=== PATIENT | female | born 1960 | race Two or more races ===

== ENCOUNTER → 2019-01-04 | Outpatient (CLI) | payer MEDICAID ==
--- NOTE | 2019-01-05 09:04 | XR ---
EXAMINATION TYPE: XR foot complete LT DATE OF EXAM: 01/04/2019 CLINICAL HISTORY: Left foot pain and swelling after rolling injury TECHNIQUE: Frontal, lateral, and oblique images of the left foot are obtained. COMPARISON: None FINDINGS: There is a chip/avulsion fracture of the medial base of the first metatarsal. There is also minimal periosteal reaction of the base of the second metatarsal medially. Mild overlying soft tissu e swelling of the medial midfoot. No additional acute fracture is seen. No radiopaque foreign body. O sseous mineralization is within normal limits. IMPRESSION: Chip avulsion fracture of the medial base of the first metatarsal likely from avulsion of the peroneus longus. Additionally there is minimal periosteal reaction along the medial base of the second metatarsal from age indeterminant injury.
== END | disposition home or self-care (01) ==
LOC: RADXRMAIN 17:08
PROVIDERS: ATTEND Physician Assistant Medical
DX: S92.312A Displaced fracture of first metatarsal bone, left foot, initial encounter for closed fracture (principal)

== ENCOUNTER → 2019-01-12 | Outpatient (CLI) | payer MEDICAID ==
--- NOTE | 2019-01-13 05:02 | CT ---
EXAMINATION TYPE: CT foot LT wo con DATE OF EXAM: 01/12/2019 COMPARISON: Radiograph 01/04/2019 HISTORY: 58-year-old female Left foot pain after fall. TECHNIQUE: Contiguous axial scanning of the left foot without IV contrast. Coronal and sagittal recon structions performed. Radiograph reconstruction generated on a dedicated independent workstation. CT DLP: 290 mGycm Automated exposure control for dose reduction was used. FINDINGS: No midfoot malalignment. However, there is an oblique fracture through the second metatarsal base at the expected Lisfranc ligament attachment site. Tiny chip fracture medial base of the first metatarsal as seen on radiographs. Additional chip fracture along the medial base of the third metatarsal and a larger oblique fracture medial aspect of the fourth metatarsal. No additional acute fracture is seen. The degree of soft tissue swelling is not as much as would be expected for an acute injury. IMPRESSION: 1. CHIP FRACTURES AT THE FIRST AND THIRD METATARSAL BASES AND LARGER OBLIQUE FRACTURES AT MEDIAL ASPE CT OF THE SECOND AND FOURTH METATARSAL BASES. FINDINGS SUGGESTING AVULSION FRACTURES RELATING TO THE LISFRANC LIGAMENT COMPLEX. 2. NO MIDFOOT MALALIGNMENT. 3. CORRELATE TO TIME FRAME SINCE INJURY THE DEGREE OF SOFT TISSUE SWELLING IS NOT MUCH W OULD BE EXPECTED.
== END | disposition home or self-care (01) ==
LOC: RADCTMAIN 15:34
PROVIDERS: ATTEND Orthopaedic Surgery
DX: S92.312A Displaced fracture of first metatarsal bone, left foot, initial encounter for closed fracture (principal); S92.322A Displaced fracture of second metatarsal bone, left foot, initial encounter for closed fracture; S92.332A Displaced fracture of third metatarsal bone, left foot, initial encounter for closed fracture; S92.342A Displaced fracture of fourth metatarsal bone, left foot, initial encounter for closed fracture; M25.571 Pain in right ankle and joints of right foot

== ENCOUNTER → 2020-05-23 | Outpatient (CLI) | payer MEDICAID ==
--- NOTE | 2020-05-24 00:33 | MR ---
EXAMINATION TYPE: MR foot LT wo con DATE OF EXAM: 05/23/2020 COMPARISON: CT foot 01/12/2019 HISTORY: Pain in left foot, multiple fractures Multiplanar multiecho imaging of the left foot was performed without contrast. There is some narrowing of the ankle joint space. I see no acute fracture nor dislocation. Talus and calcaneus are intact. Achilles tendon is intact. The medial and lateral flexor tendons of the foot ap pear intact. There is very mild edema and decreased signal on the T1 images at the base of the second metatarsal. There is also focal decreased signal in the base of the fourth metatarsal which is somew hat rounded. The plantar fascia appears intact. The toes appear intact. There is no evidence of a sof t tissue mass. There is mild soft tissue edema around the heads of the metatarsals of the entire foot . There is subcutaneous edema on the plantar aspect of the MP joints. Impression no acute fracture seen. There is some edema at the base of the fourth metatarsal. Clinica l significance is not clear. This could be a bone bruise. There appears to be satisfactory healing of the metatarsal fractures compared to old exam. There is soft tissue swelling and subcutaneous edema of the forefoot at the metatarsal heads and MP j oints. 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
== END | disposition home or self-care (01) ==
LOC: RADMRIMAIN 09:02
PROVIDERS: ATTEND Orthopaedic Surgery Sports Medicine
DX: M19.072 Primary osteoarthritis, left ankle and foot (principal); M79.89 Other specified soft tissue disorders